=== PATIENT | female | born 1930 | race Asian ===

== ENCOUNTER → 2019-07-07 | Outpatient (CLI) | payer MEDICARE, OTHER ==
[2016-02-07 18:30] VITALS: BP 177/75
[~2019-07-07] MED LIST: AMLO5TAB4 PO; ATOR10TA PO; CARV3.12 PO; CELE200C PO; ESTR0.62 PO; GEMF600T8 PO; LEVO100T PO; PROP10TA PO
--- NOTE | 2019-07-07 17:04 | RAD ---
Exam: CT head INDICATION: Headache TECHNIQUE: Sequential axial images through the head were obtained without the administration of IV contrast. Comparisons: None FINDINGS: No focal parenchymal lesion or hemorrhage is identified. There is no midline shift or sulcal effacement. No acute vascular territory infarction is identified. Espinoza-white distinction is preserved. The ventricular system is within normal limits without compression hydrocephalus. The basal cisterns are well maintained. The visualized portions of the paranasal sinuses and mastoid air cells are well-pneumatized. No acute fractures. IMPRESSION: No acute intracranial abnormality. Exposure: One or more of the following in the visualized dose reduction techniques were utilized for this examination: 1. Automated exposure control 2. Adjustment of the MA and/or KV according to patient size Use of iterative of reconstructive technique Electronically signed by: Juanis Ross MD (07/07/2019 5:00 PM) [id number]
--- NOTE | 2019-07-07 17:07 | RAD ---
Exam: Lumbar spine 2 views INDICATION: Back pain TECHNIQUE: Frontal and lateral views of the lumbar spine with spot magnification view of the lumbosacral junction Comparisons: MRI 05/18/2014 FINDINGS: There is mild compression of the L1 vertebral body. Grade 1 retrolisthesis of T12 on L1 and L1 on L2. Degenerative disc disease greatest at L2-L3 and L3-L4. Mild bilateral facet arthropathy is also noted lumbar spine. Visualized paraspinal soft tissues are unremarkable. IMPRESSION: 1. Compression deformity of the L1 vertebral body which is new when compared to the study in 2015. Correlate with point tenderness. 2. Severe spondylotic change in the lumbar spine. Electronically signed by: Juanis Ross MD (07/07/2019 5:04 PM) [id number]
== END | disposition home or self-care (01) ==
LOC: CT 16:26
PROVIDERS: ATTEND Family Medicine
DX: M51.36 Other intervertebral disc degeneration, lumbar region (principal); M46.86 Other specified inflammatory spondylopathies, lumbar region; M43.8X6 Other specified deforming dorsopathies, lumbar region; M47.816 Spondylosis without myelopathy or radiculopathy, lumbar region
CPT/HCPCS: 70450; 72100

== ENCOUNTER 2019-10-19 16:19 | Inpatient (IN) | payer MEDICARE, OTHER ==
[~2019-10-19] VITALS: Ht 149.9 cm; Wt 47.8 kg
--- NOTE | 2019-10-19 16:41 | PHYS DOC ---
Past History Past Medical History: Arthritis, Hypertension, Hypothyroid Past Surgical History: Hysterectomy Smoking: Non-smoker Alcohol Use: None Drug Use: None Adult General Chief Complaint Chief Complaint: CHEST PAIN HPI HPI Patient is a 89-year-old female who presents for chest pain. Onset was 3 days ago while at rest. Nothing known makes better or worse. Pain described as substernal in nature with mild radiation to the left breast. She rates the pain 4 out of 10 in severity. This pain waxes and wanes. She saw her primary care physician early this afternoon and had EKG performed. After thorough history PCP recommended patient seek care at our ER for likely observation to the hospital for chest pain rule out acute myocardial infarction. Of note, patient denies prior cardiovascular work-up, no catheterization or stents. She does admit to increased lower extremity edema for past 3 months that has been worsening without paroxysmal dyspnea or worsening shortness of breath on ambulation. She has full capacity at this time, admits she is DNR status, also admits she does not want any invasive intervention Review of Systems Review of Systems Fourteen body systems of review of systems have been reviewed. See HPI for pertinent positives and negative responses, other church all other systems are negative, non-pertinent or non-contributory Allergies Allergies Allergies Coded Allergies Type Severity Reaction Last Updated Verified No Known Drug Allergies 02/09/13 No Physical Exam Physical Exam Constitutional: Well developed, well nourished, no acute distress, non-toxic appearance. HENT: Normocephalic, atraumatic, bilateral external ears normal, oropharynx moist, no oral exudates, nose normal. Eyes: PERRLA, EOMI, conjunctiva normal, no discharge. Neck: Normal range of motion, no tenderness, supple, no stridor. Cardiovascular: Heart rate regular, sinus rhythm, no murmurs rubs or gallops Lungs & Thorax: Bilateral breath sounds coarse with mild rales in bilateral bases Abdomen: Bowel sounds normal, soft, no tenderness, no masses, no pulsatile masses. Nonsurgical abdomen, no peritoneal signs Skin: Warm, dry, no erythema, no rash. Back: No tenderness, no CVA tenderness. Extremities: No tenderness, no cyanosis, no clubbing, ROM intact, 1+ pitting edema to bilateral lower extremities Neurologic: Alert and oriented X 3, grossly normal motor & sensory function, no focal deficits noted. Psychologic: Affect normal, judgement normal, mood normal. Current Patient Data Vital Signs Vital Signs Date Time Temp Pulse Resp B/P (MAP) Pulse Ox O2 Delivery O2 Flow Rate FiO2 10/19/19 17:08 60 183/64 10/19/19 16:45 98.6 23 96 Room Air Lab Results Laboratory Tests Test 10/19/19 16:35 White Blood Count 4.0 x10^3/uL (4.0-11.0) Red Blood Count 3.85 x10^6/uL (3.50-5.40) Hemoglobin 11.8 g/dL (12.0-15.5) Hematocrit 37.0 % (36.0-47.0) Mean Corpuscular Volume 96 fL (79-100) Mean Corpuscular Hemoglobin 31 pg (25-35) Mean Corpuscular Hemoglobin Concent 32 g/dL (31-37) Red Cell Distribution Width 17.4 % (11.5-14.5) Platelet Count 175 x10^3/uL (140-400) Neutrophils (%) (Auto) 74 % (31-73) Lymphocytes (%) (Auto) 18 % (24-48) Monocytes (%) (Auto) 7 % (0-9) Eosinophils (%) (Auto) 2 % (0-3) Basophils (%) (Auto) 1 % (0-3) Neutrophils # (Auto) 3.0 x10^3uL (1.8-7.7) Lymphocytes # (Auto) 0.7 x10^3/uL (1.0-4.8) Monocytes # (Auto) 0.3 x10^3/uL (0.0-1.1) Eosinophils # (Auto) 0.1 x10^3/uL (0.0-0.7) Basophils # (Auto) 0.0 x10^3/uL (0.0-0.2) Prothrombin Time 11.6 SEC (9.4-11.4) Prothromb Time International Ratio 1.1 (0.9-1.1) Activated Partial Thromboplast Time 23 SEC (23-33) Sodium Level 142 mmol/L (136-145) Potassium Level 4.6 mmol/L (3.5-5.1) Chloride Level 107 mmol/L (98-107) Carbon Dioxide Level 24 mmol/L (21-32) Anion Gap 11 (6-14) Blood Urea Nitrogen 46 mg/dL (7-20) Creatinine 1.9 mg/dL (0.6-1.0) Estimated GFR (Cockcroft-Gault) 24.9 BUN/Creatinine Ratio 24 (6-20) Glucose Level 130 mg/dL (70-99) Calcium Level 8.9 mg/dL (8.5-10.1) Total Bilirubin 0.8 mg/dL (0.2-1.0) Aspartate Amino Transf (AST/SGOT) 23 U/L (15-37) Alanine Aminotransferase (ALT/SGPT) 33 U/L (14-59) Alkaline Phosphatase 76 U/L (46-116) Troponin I Quantitative 0.111 ng/mL (0-0.055) BG-Nyn-X-Type Natriuretic Peptide 18534 pg/mL (0-449) Total Protein 6.2 g/dL (6.4-8.2) Albumin 3.3 g/dL (3.4-5.0) Albumin/Globulin Ratio 1.1 (1.0-1.7) Lipase 108 U/L (73-393) EKG EKG EKG ordered and interpreted by myself at 1645 hrs. this sinus bradycardia at 50 bpm, unremarkable intervals, no axis deviation, nonspecific T wave changes in leads I and V6, no obvious fascicular blocks, no STEMI Radiology/Procedures Radiology/Procedures PROCEDURE: PORTABLE CHEST 1V EXAMINATION: PORTABLE CHEST 1V CLINICAL HISTORY: Chest pain EXAM DATE/TIME: 10/19/2019 4:41 PM COMPARISON: CT chest 02/09/2013 FINDINGS: Lines, tubes, and devices: None. Cardiomediastinal silhouette: Moderate cardiomegaly. Lungs and pleura: Mild patchy airspace disease and bilateral lower lung zones. Probable small bilateral pleural effusions. Prominence of the bilateral main pulmonary arteries compatible with pulmonary hypertension. Bones and soft tissues: Degenerative changes and mild curvature of the thoracolumbar spine. IMPRESSION: Mild patchy airspace disease in the bilateral lower lung zones. Moderate cardiomegaly and findings compatible with pulmonary hypertension. Electronically signed by: Laron Tiwari DO (10/19/2019 5:49 PM) [id number] Course & Med Decision Making Course & Med Decision Making Patient seen and evaluated with son present on ER arrival Airway patent, breathing unlabored, vitals remarkable for hypertension only, IV access obtained Comprehensive history and physical exam performed with assistance from son, subsequent diagnostic studies ordered X1 sublingual nitro administered with full relief in symptomology, IV 40 mg L asix administered Asymptomatic patient reassessed several times by numerous healthcare providers throughout ER stay I discussed findings of N STEMI with patient, this, in the setting of high heart score is concerning. Patient reiterated at this time she is DNR. Also reiterated at this time she did not want any invasive cardiac management, she wants to treat this and STEMI medically only I called patient's PCP and admitting physician, Dr. Saldana, who agreed for admission to [facility] for continued medical management. Dr. Saunders, cardiology, was consulted for assistance Heparin drip started prior to stable patient being transported to [facility] for continued medical care in stable condition Dragon Disclaimer Dragon Disclaimer This electronic medical record was generated, in whole or in part, using a voice recognition dictation system. Departure Departure: Impression: Primary Impression: Chest pain, rule out acute myocardial infarction Disposition: ADMITTED [facility]PAT[facility] Admitting Physician: Javed Saldana Condition: STABLE Referrals: JAVED SALDANA MD (PCP) Justification of Admission: Justification of Admission: Justification of Admission Dx: Yes (Heart score greater than 3, high risk patient requiring cardiac observation to rule out myocardial infarction) HEART Score for Chest Pain PTs The HEART Score for CP Pts HEART Score for Chest Pain: HEART Score for Chest Pain Response (Comments) Value History Moderately Suspicious 1 ECG Nonspecific Repolarizatio 1 Age > 65 2 Risk Factors 1 or 2 Risk Factors 1 Troponin < Normal Limit 0 Total 5 Risk Factors: Risk Factors: DM, Current or recent (<one month) smoker, HTN, HLP, family history of CAD, obesity. Risk Scores: Score 0 - 3: 2.5% MACE over next 6 weeks - Discharge Home Score 4 - 6: 20.3% MACE over next 6 weeks - Admit for Clinical Observation Score 7 - 10: 72.7% MACE over next 6 weeks - Early Invasive Strategies NIMA RAMIREZ DO Oct 19, 2019 16:41
[2019-10-19] MEDS ORDERED: ASPIRIN CHEWABLE 81 MG TABLET. PO ONE (16:45)
[2019-10-19] MEDS ORDERED: NITROGLYCERIN SUBLINGUAL 0.4 MG BOTTLE OF 25. SL PRN ×2 (16:45→17:45)
--- NOTE | 2019-10-19 16:53 | EKG ---
[address] [address] Test Date: 2019-10-19 Test Time: 16:35:25 Pat Name: JACQUE MUNIZ Department: Room: Gender: F [employer] Lab Technician: : [id number] Requested By: NIMA RAMIREZ Order Number: [id number] Reading MD: Measurements Intervals [place] Rate: 50 P: 90 SD: 192 QRS: 6 QRSD: 88 T: 166 QT: 458 QTc: 420 Interpretive Statements SINUS RHYTHM T ABNORMALITY IN LATERAL LEADS INFEROLATERAL LEADS ABNORMAL ECG RI6.02 No previous ECG available for comparison
[2019-10-19 17:01] LABS: BASO % 1 % (0-3); EOS # 0.1 x10^3/uL (0.0-0.7); EOS % 2 % (0-3); HEMOGLOBIN 11.8 g/dL (12.0-15.5); LYMPH # 0.7 x10^3/uL (1.0-4.8); LYMPH % 18 % (24-48); MEAN CORPUSCULAR HEMOGLOBIN 31 pg (25-35); MEAN CORPUSCULAR HGB CONC 32 g/dL (31-37); MEAN CORPUSCULAR VOLUME 96 fL (79-100); MONO # 0.3 x10^3/uL (0.0-1.1); MONO % 7 % (0-9); NEUT % 74 % (31-73); PLATELET COUNT 175 x10^3/uL (140-400); RED BLOOD COUNT 3.85 x10^6/uL (3.50-5.40); RED CELL DISTRIBUTION WIDTH 17.4 % (11.5-14.5)
[2019-10-19 17:16] LABS: CALCIUM 8.9 mg/dL (8.5-10.1); CREATININE 1.9 mg/dL (0.6-1.0); GFR 24.9; POTASSIUM 4.6 mmol/L (3.5-5.1)
[2019-10-19 17:28] LABS: ALBUMIN 3.3 g/dL (3.4-5.0); ALBUMIN/GLOBULIN RATIO 1.1 (1.0-1.7); TOTAL BILIRUBIN 0.8 mg/dL (0.2-1.0); TOTAL PROTEIN 6.2 g/dL (6.4-8.2)
--- NOTE | 2019-10-19 17:52 | RAD ---
EXAMINATION: PORTABLE CHEST 1V CLINICAL HISTORY: Chest pain EXAM DATE/TIME: 10/19/2019 4:41 PM COMPARISON: CT chest 02/09/2013 FINDINGS: Lines, tubes, and devices: None. Cardiomediastinal silhouette: Moderate cardiomegaly. Lungs and pleura: Mild patchy airspace disease and bilateral lower lung zones. Probable small bilateral pleural effusions. Prominence of the bilateral main pulmonary arteries compatible with pulmonary hypertension. Bones and soft tissues: Degenerative changes and mild curvature of the thoracolumbar spine. IMPRESSION: Mild patchy airspace disease in the bilateral lower lung zones. Moderate cardiomegaly and findings compatible with pulmonary hypertension. Electronically signed by: Laron Tiwari DO (10/19/2019 5:49 PM) [id number]
[2019-10-19] MEDS ORDERED: HEPARIN for IV BOLUS 10,000 UNIT/10 ML VIAL. IV PRN ×2 (18:15→22:09)
[2019-10-19] MEDS ORDERED: HEPARIN 25,000UTS/250ML PREMIX 250 ML IV PRN (18:15)
[2019-10-19] MEDS ORDERED: HEPARIN for IV BOLUS 10,000 UNIT/10 ML VIAL. IV ONE ×2 (18:15→18:30)
[2019-10-19] MEDS ORDERED: FUROSEMIDE 40 MG/4 ML VIAL IVP ONE (18:45)
[2019-10-19 19:04] VITALS: BP 182/58
[2019-10-19] MEDS ORDERED: LOSA50TA86 PO (21:36)
[2019-10-19] MEDS ORDERED: HYDR-2145 PO (21:36)
[2019-10-19] MEDS ORDERED: CLON-276 PO (21:36)
[2019-10-19] MEDS ORDERED: HYDR-2765 PO (21:36)
[2019-10-19] MEDS ORDERED: CYCL1DRO EACHEYE (21:36)
[2019-10-19] MEDS ORDERED: ALPR0.254 PO (21:36)
[2019-10-19] MEDS ORDERED: cloNIDine HCL 0.2 MG TABLET PO PRN (21:45)
[2019-10-19] MEDS ORDERED: HYDROcodone/APAP 7.5/325MG 1 TAB TABLET PO PRN (21:45)
--- NOTE | 2019-10-19 22:56 | NUR ---
PT went to see MD for chest pain that has been ongoing for the last 3 weeks, increasing today. MD advised to come to [facility]. PT's son brought her to the ER, NSTEMI noted. PT admitted for same and started on weight-based heparin drip. PT on arrival with minimal pain, no radiation. Telemetry applied. Reviewed with PT her PMH, PSH, SH, FH and medications. PT unsure of all the medications she is supposed to take at home. History and Physical faxed from MD office, medications obtained and updated from that. Orders placed. Repeat troponin and PTT ordered for continued therapy.
[2019-10-19 23:17] VITALS: BP 160/83
[2019-10-20 00:34] LABS: BACTERIA,URINE FEW /HPF (0-FEW); BILIRUBIN,URINE NEG (NEG); CLARITY,URINE HAZY; COLOR,URINE YELLOW; GLUCOSE,URINE NEG (NEG); NITRITE,URINE NEG (NEG); RBC,URINE 0 /HPF (0-2); UROBILINOGEN,URINE 0.2 mg/dL (0.2 mg/dL)
[2019-10-20 00:35] LABS: SQUAMOUS EPITHELIAL CELL,UR OCC /LPF
--- NOTE | 2019-10-20 01:53 | NUR ---
Heparin rate decreased to 6.13/hr. New lab order placed.
[2019-10-20 03:17] VITALS: BP 162/67
[2019-10-20] MEDS: LEVOTHYROXINE 112 MCG TABLET PO SCH (05:57)
[2019-10-20 06:03] VITALS: BP 171/59
[2019-10-20] MEDS: GEMFIBROZIL 600 MG TABLET. PO SCH ×2 (08:40→20:07)
[2019-10-20] MEDS: cycloSPORINE 0.05% OPTH 1 DROP DROPERETTE OU SCH ×2 (08:40→20:08)
[2019-10-20] MEDS: LOSARTAN 50 MG TABLET. PO SCH ×2 (08:41→20:07)
[2019-10-20] MEDS: hydroCHLOROthiazide 25 MG TABLET PO SCH (08:41)
[2019-10-20] MEDS: amLODIPine BESYLATE 10 MG TABLET PO SCH (08:41)
[2019-10-20] MEDS: CARVEDILOL 12.5 MG TABLET PO SCH ×3 (08:41→20:08)
[2019-10-20] MEDS: ALPRAZolam 0.25 MG TABLET PO SCH ×3 (08:41→20:08)
[2019-10-20] MEDS ORDERED: CELECOXIB 100 MG CAPSULE PO SCH (09:00)
[2019-10-20 11:14] VITALS: BP 179/65
--- NOTE | 2019-10-20 11:37 | CONS ---
DATE OF CONSULTATION: NEUROLOGY CONSULTATION REFERRING PHYSICIAN: Dr. Banda. REASON FOR CONSULTATION: Acute mental status changes. HISTORY OF PRESENT ILLNESS: This is an 89-year-old female who was admitted through Emergency Room yesterday after she presented with chief complaint of 3-day history of intermittent substernal chest pain and sometimes radiating to the left breast associated with exertional dyspnea. She denies cough, wheezing, headaches, visual disturbances, dysarthria, dysphagia, weakness or paresthesia. According to the patient, she has been under extreme stress at home, she is taking care of her and her son as well. She has not had any recent or previous cardiac workup for exertional dyspnea. It was reported that the patient has significant swelling of the lower extremities 3 months ago. She denies headache, visual disturbances, bowel or bladder dysfunction. She denies gastroesophageal reflux disease. PAST MEDICAL HISTORY: Significant for generalized arthritis, hypertension, hypothyroidism, anxiety, and history of congestive heart failure, hyperlipidemia. PAST SURGICAL HISTORY: Positive for hysterectomy. SOCIAL HISTORY: The patient is . She denies smoking, alcohol drinking, or illicit drug use. CURRENT HOME MEDICATIONS: Celebrex 200 mg daily, losartan 50 mg b.i.d., hydrochlorothiazide 25 mg p.o. daily, Lopid 600 mg b.i.d., cyclosporine eye drops b.i.d., carvedilol 25 mg t.i.d., amlodipine 10 mg daily, alprazolam 0.25 mg t.i.d., levothyroxine 112 mcg p.o. daily, clonidine 0.2 mg b.i.d. p.r.n. for severe hypertension, nitroglycerin 0.4 sublingually p.r.n. for chest pain. ALLERGIES: No known drug allergies. REVIEW OF SYSTEMS: A 10-point review of system was performed as mentioned above in history of present illness, otherwise unremarkable. PHYSICAL EXAMINATION: GENERAL: Thin female, not in acute distress. She weighs 47.8 kilos. VITAL SIGNS: Blood pressure 171/59, respiratory rate 20, pulse is 51, oxygen saturation 95%, temperature is 97.7. HEENT: Normocephalic, atraumatic, otherwise unremarkable. NECK: Supple. Negative for carotid bruit, lymphadenopathy or thyromegaly. LUNGS: Clear to A and P. CARDIOVASCULAR: Regular rate and rhythm, normal S1, S2. There is no S3, S4 or murmurs. ABDOMEN: Soft. Bowel sounds positive. EXTREMITIES: Negative for cyanosis, clubbing or edema. NEUROLOGICAL EXAM: 1. Mental Status: The patient is alert and oriented x 3. Speech is fluent. There is no language dysfunction. Memory, judgment, and abstracting thinking are normal for her age. The patient denies hallucination or delusion. 2. Cranial Nerves: Visual mendoza are full. The pupils are reactive to light and accommodation. The extraocular movements are intact. There is no nystagmus. There is no facial motor or sensory deficits. Hearing is intact bilaterally. The palate is elevated symmetrically. Sternocleidomastoid muscles are powerful bilaterally. The patient shrugs her shoulders symmetrically, protrudes her tongue in the midline without fasciculation or atrophy. 3. Motor: No focal muscle bulk was seen. The tone is normal. The strength is 4/5 throughout. 4. Sensory examination revealed normal pinprick, light touch, vibratory and position senses. 5. Deep tendon reflexes are symmetric and hypoactive with absent Achilles responses. 6. Gait and coordination were normal. LABORATORY DATA: CBC revealed white blood cells of 4000, hemoglobin 11.8, hematocrit 37, platelet count is 175,000. Chemistry revealed sodium of 142, potassium 4.6, chloride 107, CO2 of 24, BUN 46, creatinine 1.9, glucose 130, calcium is 8.9. Troponin level is elevated at 0.6, NPB is elevated at 13,936. Liver enzymes are normal. CRP is normal. Coagulation: PT is 11.6 and PTT is high at 84. DIAGNOSTIC DATA: Chest x-ray revealed [id number] cardiomegaly with finding suggestive of pulmonary hypertension. EKG revealed bradycardia at 50. Otherwise, no acute changes. IMPRESSION: 1. Intermittent chest pain with history of congestive heart failure and currently with bradycardia with elevated troponin, rule out coronary artery disease. 2. Anxiety and extreme stress. 3. Multiple medical problems include essential hypertension, hypothyroidism, and elevated PTT. RECOMMENDATIONS: 1. Continue with current management initiated by Dr. Banda. 2. Cardiology consult, follow up with urinalysis as urinary leukocyte esterase is trace with elevated urine white blood cells. M F. HABIB, MD DR: TAMICA/patricia JOB#: [id number] / [id number]
--- NOTE | 2019-10-20 13:42 | NUR ---
NSG NOTE; MEDS HELD PT REFUSED TO TAKE AM MEDS UNTIL 1300, SO 1400 DOSES WERE HELD
[2019-10-20 15:32] VITALS: BP 163/55
--- NOTE | 2019-10-20 19:12 | PN ---
DATE: SUBJECTIVE: An 89-year-old [place] female in good state of health, apparently was having some chest pain in the office, came in and had elevated troponins, elevated BNP of 13,000. The patient otherwise seems to be resting fairly comfortably, making fairly good progress overall. She was put on a heparin drip by Dr. Young, noted ve teacher. The patient presently denies any chest pain or shortness of breath. OBJECTIVE: VITAL SIGNS: Blood pressure has come down to 163/55, respiratory rate 16, pulse 50. Afebrile. GENERAL: The patient is alert and oriented. Speaks broken Gibraltarian, but does understand what is going on. Otherwise, the patient seems to be resting comfortably. She is without chest pain. LUNGS: Diminished, but clear. CARDIOVASCULAR: Stable. ABDOMEN: Soft, nontender. EXTREMITIES: No clubbing, cyanosis, nor edema. The patient continued to be monitored carefully, make further evaluation on her. The patient's troponins have been elevated as well as is noted her BNP. Her chest x-ray though did not show any signs of heart failure, did show cardiomegaly and pulmonary hypertension. The patient otherwise seems to be resting comfortably. IMPRESSION: Therefore of a non-STEMI, anxiety, extreme stress, multiple medical problems. The patient has a history of medical issues. We consulted Dr. Arechiga for his expert consultation. In any case, we will continue to rehabilitate the patient along with her non-STEMI and chronic kidney disease. Continue to monitor her accordingly and we will repeat her labs in the morning and make further evaluation at that time. LY SALDANA MD DR: DAYNE/patricia JOB#: [id number] / [id number]
[2019-10-20 19:29] VITALS: BP 131/58
[2019-10-20 21:47] LABS: THYROID STIM HORMONE (TSH) 10.565 uIU/mL (0.358-3.740)
[2019-10-20 23:10] VITALS: BP 141/66
[2019-10-21] MEDS: LEVOTHYROXINE 112 MCG TABLET PO SCH (05:27)
[2019-10-21 05:43] VITALS: BP 165/54
[2019-10-21 06:22] LABS: BASO % 1 % (0-3); EOS # 0.1 x10^3/uL (0.0-0.7); EOS % 3 % (0-3); HEMATOCRIT 35.9 % (36.0-47.0); HEMOGLOBIN 11.7 g/dL (12.0-15.5); LYMPH % 24 % (24-48); MEAN CORPUSCULAR HEMOGLOBIN 31 pg (25-35); MEAN CORPUSCULAR HGB CONC 33 g/dL (31-37); MEAN CORPUSCULAR VOLUME 95 fL (79-100); MONO # 0.4 x10^3/uL (0.0-1.1); MONO % 9 % (0-9); NEUT # 2.7 x10^3uL (1.8-7.7); NEUT % 64 % (31-73); PLATELET COUNT 151 x10^3/uL (140-400); RED BLOOD COUNT 3.79 x10^6/uL (3.50-5.40); RED CELL DISTRIBUTION WIDTH 17.1 % (11.5-14.5); WHITE BLOOD COUNT 4.2 x10^3/uL (4.0-11.0)
[2019-10-21 06:29] LABS: CALCIUM 8.2 mg/dL (8.5-10.1); CREATININE 1.7 mg/dL (0.6-1.0); GFR 28.3; POTASSIUM 3.9 mmol/L (3.5-5.1)
[2019-10-21] MEDS ORDERED: CELECOXIB 100 MG CAPSULE PO SCH (09:00)
[2019-10-21] MEDS ORDERED: CELE200C PO (09:15)
[2019-10-21] MEDS: GEMFIBROZIL 600 MG TABLET. PO SCH (09:15)
[2019-10-21] MEDS: hydroCHLOROthiazide 25 MG TABLET PO SCH (09:17)
[2019-10-21] MEDS: cycloSPORINE 0.05% OPTH 1 DROP DROPERETTE OU SCH (09:17)
[2019-10-21] MEDS: ALPRAZolam 0.25 MG TABLET PO SCH (09:17)
[2019-10-21] MEDS: LOSARTAN 50 MG TABLET. PO SCH (09:17)
[2019-10-21] MEDS ORDERED: ASPI-630 PO (09:17)
[2019-10-21 09:19] VITALS: BP 165/94
[2019-10-21] MEDS: amLODIPine BESYLATE 10 MG TABLET PO SCH (09:19)
--- NOTE | 2019-10-21 11:00 | NUR ---
Pt initially given orders for discharge but upon reviewing discharge paperwork patient complained of 'just feeling so sleepy' and so 'weak'. Dr Banda was called to update on patients complaints. Dr Banda said to encourage patient to remain inpatient. Discussing this with Mrs. Marsh, she was adamant about leaving today, even against medical advice. Disadvantages of leaving and advantages of staying were and she decided to leave AMA still. Pt signed AMA paperwork. PIV removed. Pt left unit via wheelchair to her son's vehicle at 1100
--- NOTE | 2019-10-21 13:26 | DS ---
DATE OF DISCHARGE: 10/21/2019 HOSPITAL COURSE: An 89-year-old female. The patient came in with chest pain, had a non-STEMI type of situation. She was seen by Cardiology. The patient demanded to be discharged home to be followed up. She is also bradycardic. She is to follow up in the office here in the following week with nurse practitioner Caty. The patient did not have any chest pain this morning. The patient's lungs were diminished. She did feel a little bit better, but still very weak. 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 Also reinforced to her the need for her to stay in the hospital for more rehabilitation. She refused and said she would follow up in a week, but she had to get home. Otherwise, the patient made fairly good progress overall, very delightful lady. IMPRESSION: Therefore, non-STEMI, bradycardia, anemia of chronic disease, chronic kidney failure, hypothyroidism, elevated rheumatoid factor of 16.2. PLAN: As above. Continue to monitor her as an outpatient on these multiple factors. LY SALDANA MD DR: DAYNE/patricia JOB#: [id number] / [id number]
== END 2019-10-21 11:20 | disposition left against medical advice (07) | DRG 280 ==
LOC: ER 16:19 → 1 SOUTH 17:30
PROVIDERS: ADMIT Family Medicine; ATTEND Family Medicine
DX: I21.4 Non-ST elevation (NSTEMI) myocardial infarction (principal); I50.43 Acute on chronic combined systolic (congestive) and diastolic (congestive) heart failure; I13.0 Hypertensive heart and chronic kidney disease with heart failure and stage 1 through stage 4 chronic kidney disease, or unspecified chronic kidney disease; D63.1 Anemia in chronic kidney disease; E03.9 Hypothyroidism, unspecified; E78.5 Hyperlipidemia, unspecified; F41.9 Anxiety disorder, unspecified; I27.20 Pulmonary hypertension, unspecified; M13.0 Polyarthritis, unspecified; N18.9 Chronic kidney disease, unspecified; R00.1 Bradycardia, unspecified; Z53.29 Procedure and treatment not carried out because of patient's decision for other reasons; R79.1 Abnormal coagulation profile; Z66 Do not resuscitate; Z79.1 Long term (current) use of non-steroidal anti-inflammatories (NSAID); Z79.899 Other long term (current) drug therapy; Z90.710 Acquired absence of both cervix and uterus
CPT/HCPCS: 36415; 71045; 80048; 80053; 80061; 81001; 83690; 83880; 84443; 84484; 85025; 85610; 85730; 86140; 86431; 87086; 93005; 96374; J1644; J1940; 99285-25

== ENCOUNTER 2019-12-06 17:32 | Emergency (ER) | payer MEDICARE, OTHER ==
[~2019-12-06] VITALS: Ht 149.9 cm; Wt 47.8 kg
[~2019-12-06 17:32] MED LIST changes: +ALPR0.254 PO; +ASPI-630 PO; +CLON-276 PO; +CYCL1DRO EACHEYE; +HYDR-2145 PO; +HYDR-2765 PO; +LOSA50TA86 PO
--- NOTE | 2019-12-06 17:57 | PHYS DOC ---
Past History Past Medical History: High Cholesterol, Hypertension Past Surgical History: Hysterectomy Smoking: Non-smoker Alcohol Use: None Drug Use: None Adult General Chief Complaint Chief Complaint: ABDOMINAL PAIN HPI HPI Patient is a 89-year-old female who presents with abdominal pain. This abdominal pain started this morning and progressively worsened throughout the day. Nothing known makes better or worse. Pain is generalized and rated 5/10 in severity. Timing of symptoms has been constant and worsening since onset. Patient was unable to tolerate p.o. intake for last 1 hour prior to arrival prompting her to come seek evaluation at our ER today. Of note, patient reports her this morning and so has been increasingly more tearful and stressed. She has not been taking all of her home medications; specifically, her antihypertensives for which she electively stopped them approximately 3 to 6 weeks ago for unknown reason. Review of Systems Review of Systems Fourteen body systems of review of systems have been reviewed. See HPI for pertinent positives and negative responses, other church all other systems are negative, non-pertinent or non-contributory Allergies Allergies Allergies Coded Allergies Type Severity Reaction Last Updated Verified No Known Drug Allergies 12/06/19 No Physical Exam Physical Exam Constitutional: Well developed, well nourished, no acute distress, non-toxic appearance. HENT: Normocephalic, atraumatic, bilateral external ears normal, oropharynx moist, no oral exudates, nose normal. Eyes: PERRLA, EOMI, conjunctiva normal, no discharge. Neck: Normal range of motion, no tenderness, supple, no stridor. Cardiovascular: Heart rate regular, sinus rhythm, no murmurs rubs or gallops Lungs & Thorax: Diminished breath sounds bilaterally, mild rales in bilateral bases Abdomen: Bowel sounds normal, soft, guarding present, generalized tenderness without rebound, no masses, no pulsatile masses. Nonsurgical abdomen, no peritoneal signs Skin: Warm, dry, no erythema, no rash. Back: No tenderness, no CVA tenderness. Extremities: No tenderness, no cyanosis, no clubbing, ROM intact, no edema. Neurologic: Alert and oriented X 3, grossly normal motor & sensory function, no focal deficits noted. Psychologic: Affect normal, judgement normal, tearful mood Current Patient Data Vital Signs Vital Signs Date Time Temp Pulse Resp B/P (MAP) Pulse Ox O2 Delivery O2 Flow Rate FiO2 12/06/19 18:47 30 93 12/06/19 18:45 98 203/95 (131) Room Air Lab Results Laboratory Tests Test 12/06/19 18:15 12/06/19 18:59 12/06/19 19:30 White Blood Count 6.3 x10^3/uL (4.0-11.0) Red Blood Count 3.91 x10^6/uL (3.50-5.40) Hemoglobin 12.2 g/dL (12.0-15.5) Hematocrit 37.8 % (36.0-47.0) Mean Corpuscular Volume 97 fL (79-100) Mean Corpuscular Hemoglobin 31 pg (25-35) Mean Corpuscular Hemoglobin Concent 32 g/dL (31-37) Red Cell Distribution Width 16.6 % (11.5-14.5) Platelet Count 194 x10^3/uL (140-400) Neutrophils (%) (Auto) 89 % (31-73) Lymphocytes (%) (Auto) 6 % (24-48) Monocytes (%) (Auto) 5 % (0-9) Eosinophils (%) (Auto) 0 % (0-3) Basophils (%) (Auto) 0 % (0-3) Neutrophils # (Auto) 5.6 x10^3uL (1.8-7.7) Lymphocytes # (Auto) 0.4 x10^3/uL (1.0-4.8) Monocytes # (Auto) 0.3 x10^3/uL (0.0-1.1) Eosinophils # (Auto) 0.0 x10^3/uL (0.0-0.7) Basophils # (Auto) 0.0 x10^3/uL (0.0-0.2) Sodium Level 143 mmol/L (136-145) Potassium Level 4.3 mmol/L (3.5-5.1) Chloride Level 106 mmol/L (98-107) Carbon Dioxide Level 24 mmol/L (21-32) Anion Gap 13 (6-14) Blood Urea Nitrogen 40 mg/dL (7-20) Creatinine 1.4 mg/dL (0.6-1.0) Estimated GFR (Cockcroft-Gault) 35.4 BUN/Creatinine Ratio 29 (6-20) Glucose Level 152 mg/dL (70-99) Calcium Level 10.1 mg/dL (8.5-10.1) Total Bilirubin 0.6 mg/dL (0.2-1.0) Aspartate Amino Transf (AST/SGOT) 77 U/L (15-37) Alanine Aminotransferase (ALT/SGPT) 41 U/L (14-59) Alkaline Phosphatase 59 U/L (46-116) Troponin I Quantitative 6.164 ng/mL (0-0.055) Total Protein 7.0 g/dL (6.4-8.2) Albumin 3.9 g/dL (3.4-5.0) Albumin/Globulin Ratio 1.3 (1.0-1.7) Lipase 72 U/L (73-393) Prothrombin Time 10.8 SEC (9.4-11.4) Prothromb Time International Ratio 1.0 (0.9-1.1) Activated Partial Thromboplast Time 24 SEC (23-33) DM-Dta-C-Type Natriuretic Peptide 51921 pg/mL (0-449) Urine Collection Type Unknown Urine Color Yellow Urine Clarity Clear Urine pH 5.5 Urine Specific [place] >=1.030 Urine Protein >100 mg/dl (NEG-TRACE) Urine Glucose (UA) Neg mg/dL (NEG) Urine Ketones (Stick) Neg mg/dL (NEG) Urine Blood Mod (NEG) Urine Nitrite Neg (NEG) Urine Bilirubin Neg (NEG) Urine Urobilinogen Dipstick 0.2 mg/dL (0.2 mg/dL) Urine Leukocyte Esterase Neg (NEG) Urine RBC 3-5 /HPF (0-2) Urine WBC 0 /HPF (0-4) Urine Squamous Epithelial Cells Occ /LPF Urine Bacteria 0 /HPF (0-FEW) EKG EKG EKG ordered and interpreted by off going physician at 1748 and further confirmed by myself as sinus tachycardia at 103 bpm, unremarkable intervals, no axis deviation, no acute ischemic findings, no STEMI Radiology/Procedures Radiology/Procedures PROCEDURE: CT ABDOMEN PELVIS WO CONTRAST CT scan abdomen and pelvis without contrast 12/06/2019 CLINICAL HISTORY: Abdominal pain. TECHNIQUE: Unenhanced contiguous, 3 mm axial sections were obtained through the abdomen and pelvis. One or more of the following individualized dose reduction techniques were utilized for this study: 1. Automated exposure control. 2. Adjustment of the mA and/or kV according to patient size. 3. Use of iterative reconstruction technique. FINDINGS: Comparison study is dated 01/10/2010. Images through the lung bases demonstrate moderate cardiomegaly. There is a [id number] pericardial effusion. Small pleural effusions, right greater than left are seen. Dependent subsegmental atelectasis is seen involving both lower lobes. The liver has a somewhat nodular contour which could reflect cirrhosis. The spleen is small. The pancreas and kidneys are within normal limits. Fullness of both adrenal glands is seen. Atherosclerotic calcification of the abdominal aorta is noted. The abdominal aorta tapers normally. Small amount of free fluid is seen within the abdomen. Dilated small bowel loops are seen throughout the abdomen. A transition point in the caliber of the bowel is seen in the region of the proximal/mid ileum. These findings are consistent with a small bowel obstruction. Images through the pelvis demonstrate the urinary bladder to be slightly contracted. No adnexal mass is seen. Mild to moderate S-shaped curvature of the thoracolumbar spine is seen. Degenerative changes are seen involving the lower thoracic and throughout the lumbar spine. Old appearing compression fractures are seen involving the T12 and L1 vertebral bodies. IMPRESSION: Findings are seen consistent with a small bowel obstruction as discussed above. Electronically signed by: Lazarus Manzo MD (12/06/2019 7:40 PM) [id number] DICTATED AND SIGNED BY: LAZARUS MANZO MD DATE: 12/06/191939 CC: LY SALDANA MD; NIMA RAMIREZ DO ~ PROCEDURE: PORTABLE CHEST 1V INDICATION: Reason: Chest pain/ Spl. Instructions: / History: COMPARISON: October 19, 2019 FINDINGS: Single view of chest obtained. Cardiomediastinal silhouette is enlarged with calcific atherosclerosis. Left lung base is not well evaluated secondary to overlying cardiac silhouette but blunting of the bilateral costophrenic angles is suspected. There is also some mild interstitial opacities most prominent on the right. Elevation of the bilateral humeral heads which can be seen with chronic rotator cuff injury with degenerative changes IMPRESSION: * Enlarged cardiomediastinal silhouette is again seen which can be seen with cardiomegaly and/or pericardial effusion. * Blunting of the costophrenic angles which can be seen with small pleural effusion. There is also some predominantly interstitial opacities within the right greater than left lung which could be seen with edema or mild interstitial infiltrate. Electronically signed by: Kei Arenas MD (12/06/2019 6:27 PM) [id number] Heart Score HEART Score for Chest Pain: HEART Score for Chest Pain Response (Comments) Value History Moderately Suspicious 1 ECG Nonspecific Repolarizatio 1 Age > 65 2 Risk Factors >3 Risk Factors or Hx CAD 2 Troponin >3 x Normal Limit 2 Total 8 Risk Factors: Risk Factors: DM, Current or recent (<one month) smoker, HTN, HLP, family history of CAD, obesity. Risk Scores: Risk Factors: DM, Current or recent (<one month) smoker, HTN, HLP, family history of CAD, obesity. Course & Med Decision Making Course & Med Decision Making Ambulatory nontoxic patient seen on arrival Airway patent, breathing unlabored, vitals remarkable for marked hypertension Comprehensive history and physical exam obtained, no emergent and/or surgical findings immediately present Diagnostic work-up revealed small bowel obstruction and NSTEMI likely due to uncontrolled hypertension versus hypervolemic state. I discussed findings with patient and need for transport for higher acuity of care Dr. Macedo, hospitalist at [facility] accepted patient under his care Dr. Saunders, facer operator at [facility] was contacted and advised I gave patient Lovenox and diuresis prior to departure from our facility Dr. Smith, surgeon at [facility] was contacted and case discussed. Patient has a nonsurgical abdomen at present but will require serial abdominal exams and surgical consultation. He agreed need for transportation will see patient I updated patient in addition to patient's primary care physician on plan of care that involved transportation to [facility] via EMS for inpatient admission and they were amenable. All questions and concerns addressed prior to ER departure in stable condition Dragon Disclaimer Dragon Disclaimer This electronic medical record was generated, in whole or in part, using a voice recognition dictation system. Departure Departure: Impression: Primary Impression: SBO (small bowel obstruction) Additional Impressions: NSTEMI (non-ST elevated myocardial infarction) Hypertension Disposition: 02 DC/TRF OTHER SHORT TERM HOS ([facility]) Admitting Physician: Other (Dr. Macedo) Condition: STABLE Referrals: LY SALDANA MD (PCP) Problem Qualifiers NIMA RAMIREZ DO Dec 06, 2019 17:57
--- NOTE | 2019-12-06 18:11 | EKG ---
[address] [address] Test Date: 2019-12-06 Test Time: 17:44:54 Pat Name: JACQUE MUNIZ Department: Room: Gender: F Internal Recruiter: JOSÉ LUIS : 1930 Requested By: NIMA RAMIREZ Order Number: [id number] Reading MD: Measurements Intervals [place] Rate: 103 P: [place]: QRS: 73 QRSD: 90 T: -23 QT: 338 QTc: 445 Interpretive Statements IRREGULAR RHYTHM, NO P-WAVE FOUND LVH WITH REPOLARIZATION ABNORMALITY ABNORMAL ECG RI6.02 No previous ECG available for comparison
[2019-12-06] MEDS ORDERED: IOHEXOL 300 MG/ML 75 ML VIAL. IV ONE (18:15)
[2019-12-06] MEDS ORDERED: CONTRAST GIVEN. MC PRN (18:15)
[2019-12-06] MEDS ORDERED: hydroCHLOROthiazide 25 MG TABLET PO ONE (18:30)
--- NOTE | 2019-12-06 18:30 | RAD ---
INDICATION: Reason: Chest pain/ Spl. Instructions: / History: COMPARISON: October 19, 2019 FINDINGS: Single view of chest obtained. Cardiomediastinal silhouette is enlarged with calcific atherosclerosis. Left lung base is not well evaluated secondary to overlying cardiac silhouette but blunting of the bilateral costophrenic angles is suspected. There is also some mild interstitial opacities most prominent on the right. Elevation of the bilateral humeral heads which can be seen with chronic rotator cuff injury with degenerative changes IMPRESSION: * Enlarged cardiomediastinal silhouette is again seen which can be seen with cardiomegaly and/or pericardial effusion. * Blunting of the costophrenic angles which can be seen with small pleural effusion. There is also some predominantly interstitial opacities within the right greater than left lung which could be seen with edema or mild interstitial infiltrate. Electronically signed by: Kei Arenas MD (12/06/2019 6:27 PM) [id number]
[2019-12-06 18:43] LABS: BASO % 0 % (0-3); EOS % 0 % (0-3); HEMATOCRIT 37.8 % (36.0-47.0); HEMOGLOBIN 12.2 g/dL (12.0-15.5); LYMPH # 0.4 x10^3/uL (1.0-4.8); LYMPH % 6 % (24-48); MEAN CORPUSCULAR HEMOGLOBIN 31 pg (25-35); MEAN CORPUSCULAR HGB CONC 32 g/dL (31-37); MEAN CORPUSCULAR VOLUME 97 fL (79-100); MONO # 0.3 x10^3/uL (0.0-1.1); MONO % 5 % (0-9); NEUT # 5.6 x10^3uL (1.8-7.7); NEUT % 89 % (31-73); PLATELET COUNT 194 x10^3/uL (140-400); RED BLOOD COUNT 3.91 x10^6/uL (3.50-5.40); RED CELL DISTRIBUTION WIDTH 16.6 % (11.5-14.5); WHITE BLOOD COUNT 6.3 x10^3/uL (4.0-11.0)
[2019-12-06] MEDS ORDERED: MORPHINE SULFATE 4 MG/ML DISP.SYRIN. IV ONE (18:45)
[2019-12-06 18:47] LABS: CALCIUM 10.1 mg/dL (8.5-10.1); CREATININE 1.4 mg/dL (0.6-1.0); GFR 35.4; POTASSIUM 4.3 mmol/L (3.5-5.1)
[2019-12-06 18:54] LABS: ALBUMIN 3.9 g/dL (3.4-5.0); ALBUMIN/GLOBULIN RATIO 1.3 (1.0-1.7); TOTAL BILIRUBIN 0.6 mg/dL (0.2-1.0)
--- NOTE | 2019-12-06 19:42 | RAD ---
CT scan abdomen and pelvis without contrast 12/06/2019 CLINICAL HISTORY: Abdominal pain. TECHNIQUE: Unenhanced contiguous, 3 mm axial sections were obtained through the abdomen and pelvis. One or more of the following individualized dose reduction techniques were utilized for this study: 1. Automated exposure control. 2. Adjustment of the mA and/or kV according to patient size. 3. Use of iterative reconstruction technique. FINDINGS: Comparison study is dated 01/10/2010. Images through the lung bases demonstrate moderate cardiomegaly. There is a [id number] pericardial effusion. Small pleural effusions, right greater than left are seen. Dependent subsegmental atelectasis is seen involving both lower lobes. The liver has a somewhat nodular contour which could reflect cirrhosis. The spleen is small. The pancreas and kidneys are within normal limits. Fullness of both adrenal glands is seen. Atherosclerotic calcification of the abdominal aorta is noted. The abdominal aorta tapers normally. Small amount of free fluid is seen within the abdomen. Dilated small bowel loops are seen throughout the abdomen. A transition point in the caliber of the bowel is seen in the region of the proximal/mid ileum. These findings are consistent with a small bowel obstruction. Images through the pelvis demonstrate the urinary bladder to be slightly contracted. No adnexal mass is seen. Mild to moderate S-shaped curvature of the thoracolumbar spine is seen. Degenerative changes are seen involving the lower thoracic and throughout the lumbar spine. Old appearing compression fractures are seen involving the T12 and L1 vertebral bodies. IMPRESSION: Findings are seen consistent with a small bowel obstruction as discussed above. Electronically signed by: Lazarus Manzo MD (12/06/2019 7:40 PM) [id number]
[2019-12-06] MEDS ORDERED: FUROSEMIDE 40 MG/4 ML VIAL IVP ONE (20:30)
[2019-12-06] MEDS ORDERED: ENOXAPARIN ** NOTE DOSE ** SYRINGE SQ ONE (20:30)
[2019-12-06 20:42] LABS: BILIRUBIN,URINE NEG (NEG); CLARITY,URINE CLEAR; COLOR,URINE YELLOW; GLUCOSE,URINE NEG (NEG)
[2019-12-06 20:43] LABS: BACTERIA,URINE 0 /HPF (0-FEW); NITRITE,URINE NEG (NEG); SQUAMOUS EPITHELIAL CELL,UR OCC /LPF; UROBILINOGEN,URINE 0.2 mg/dL (0.2 mg/dL); WBC,URINE 0 /HPF (0-4)
[2019-12-06 22:54] VITALS: BP 198/75
[2019-12-06] MEDS ORDERED: ONDANSETRON PF 4 MG/2 ML VIAL. IVP ONE (23:30)
[2019-12-07] MEDS ORDERED: ONDANSETRON PF 4 MG/2 ML VIAL. IVP ONE (02:00)
== END 2019-12-06 23:13 | disposition short-term general hospital (02) ==
LOC: ER 17:32
DX: K56.609 Unspecified intestinal obstruction, unspecified as to partial versus complete obstruction (principal); I21.4 Non-ST elevation (NSTEMI) myocardial infarction; I10 Essential (primary) hypertension; E78.00 Pure hypercholesterolemia, unspecified; Z90.710 Acquired absence of both cervix and uterus
CPT/HCPCS: 36415; 71045; 74176; 80053; 81001; 83690; 83880; 84484; 85025; 85610; 85730; 93005; 96372; 96374; 96375; 99285; J1650; J1940; J2270; J2405